=== PATIENT | female | born 1965 | race Caucasian/White ===

== ENCOUNTER 2019-08-17 14:44 | Inpatient (IN) | payer MEDICARE ==
[~2019-08-17] VITALS: Ht 162.6 cm; Wt 90.9 kg
[2019-08-17] MEDS ORDERED: NALT50TA4 PO (15:13)
[2019-08-17] MEDS ORDERED: PROT1TAB2 PO (15:13)
[2019-08-17] MEDS ORDERED: ABIL1TAB13 PO (15:13)
[2019-08-17] MEDS ORDERED: BUPR-368 PO (15:13)
[2019-08-17] MEDS ORDERED: MIRT1TAB17 PO (15:13)
[2019-08-17] MEDS ORDERED: CLON0.5T2 PO (15:13)
[2019-08-17] MEDS ORDERED: TOPA100T12 PO (15:13)
[2019-08-17] MEDS ORDERED: TRIA37.5 PO (15:13)
[2019-08-17] MEDS ORDERED: CYMB60CA3 PO (15:13)
[2019-08-17] MEDS ORDERED: ESTR125TA PO (15:13)
[2019-08-17] MEDS ORDERED: GUAN1TA PO (15:13)
[2019-08-17] MEDS ORDERED: ZIPR40CA11 PO (15:13)
[2019-08-17] MEDS ORDERED: FURO40TA2 PO (15:13)
[2019-08-17] MEDS ORDERED: METF500T13 PO (15:13)
[2019-08-17] MEDS ORDERED: GABA600T4 PO (15:13)
[2019-08-17] MEDS ORDERED: ATOR1TAB19 PO (15:13)
[2019-08-17] MEDS ORDERED: XALA0.007 OU (15:13)
[2019-08-17] MEDS ORDERED: TOPR100T PO (15:13)
[2019-08-17] MEDS ORDERED: GABAPENTIN 300 MG CAP PO ONE (15:15)
[2019-08-17] MEDS ORDERED: MAALOX 30 ML SUSP *UDC PO PRN (17:15)
[2019-08-17] MEDS ORDERED: OLANZapine 5 MG TAB PO PRN (17:15)
[2019-08-17] MEDS ORDERED: ACETAMINOPHEN TAB 650MG DOSE (2X325MG) PO PRN (17:15)
[2019-08-17] MEDS ORDERED: diphenhydrAMINE 25 MG CAP PO PRN (17:15)
[2019-08-17] MEDS ORDERED: IBUPROFEN 400 MG TAB PO PRN (17:15)
[2019-08-17] MEDS ORDERED: MOM 30ML SUSPENSION UDC PO PRN (17:15)
[2019-08-17] MEDS ORDERED: traZODone 50 MG TAB PO PRN (17:15)
[2019-08-17] MEDS ORDERED: ARIP1TAB6 PO (17:15)
[2019-08-17] MEDS ORDERED: POLYOPD OU (17:15)
[2019-08-17] MEDS ORDERED: GLUC4GMTAB PO (17:16)
[2019-08-17] MEDS ORDERED: MULT-40 PO (17:16)
[2019-08-17] MEDS ORDERED: IBUP200C28 PO (17:16)
[2019-08-17] MEDS ORDERED: WELL200T PO (17:20)
[2019-08-17 20:53] VITALS: BP 128/74
[2019-08-18 05:58] VITALS: BP 119/66
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
[2019-08-18] MEDS ORDERED: clonazePAM 0.5 MG TAB PO PRN (10:30)
[2019-08-18] MEDS ORDERED: POLYVINYL ALCOHOL OPHTH SOLN 15 ML(LIQUITEARS) OU PRN (10:30)
[2019-08-18] MEDS: ZIPRASIDONE 20MG CAPSULE (GEODON) PO SCH ×2 (12:03→21:15)
[2019-08-18] MEDS: DULoxetine 30 MG CAP (CYMBALTA) PO SCH ×2 (12:03→21:16)
[2019-08-18] MEDS: MULTIVITAMINS/MINERALS THERAP 1 TAB PO SCH (12:03)
[2019-08-18] MEDS: buPROPion **XL** TABLET 150MG (WELLBUTRIN XL) PO SCH (12:04)
[2019-08-18] MEDS: guanFACINE 1 MG TAB PO SCH ×2 (12:04→21:13)
[2019-08-18] MEDS: IBUPROFEN 400 MG TAB PO PRN ×2 (12:04→21:15)
[2019-08-18] MEDS: ATORVASTATIN 10 MG TAB PO SCH (12:05)
[2019-08-18] MEDS: GABAPENTIN 300 MG CAP PO SCH ×3 (12:05→21:15)
[2019-08-18] MEDS: metFORMIN (GLUCOPHAGE) 500 MG TAB PO SCH (12:05)
[2019-08-18] MEDS: PANTOPRAZOLE 40MG TAB (PROTONIX) PO SCH (12:05)
[2019-08-18] MEDS: FUROSEMIDE 40 MG TAB PO SCH (12:05)
[2019-08-18] MEDS: METOPROLOL SUCC (TopROL XL) 100MG *XL* TAB PO SCH (17:01)
[2019-08-18] MEDS: DYAZIDE 37.5/25 CAP (TRIAM/HCTZ) PO SCH (17:01)
[2019-08-18 18:14] VITALS: BP 116/69
[2019-08-18] MEDS: NALTREXONE 50 MG TAB PO SCH (21:13)
[2019-08-18] MEDS: MIRTAZAPINE 15 MG TAB PO SCH (21:13)
[2019-08-18] MEDS: TOPIRAMATE (TopAMAX) 100 MG TAB PO SCH (21:14)
[2019-08-18] MEDS: LATANOPROST 0.005% OPHTH SOLN 2.5 ML OU SCH (21:14)
[2019-08-19 05:50] VITALS: BP 110/55
--- NOTE | 2019-08-19 06:53 | HPEPDOC ---
General Date of Admission Aug 17, 2019 at 17:01 Date of Service: Aug 18, 2019 Chief Complaint The patient is a 54-year-old female admitted with a reason for visit of Unspecified Depression. Source: Patient History of Present Illness 54 year old female admitted to [facility] for depression with suicidal attempt. Today she compained of bilateral hip pain , dull aching about 3/10 in intensity and worsens when she stands or walks for too long. no radiation. Home Medications Scheduled Aripiprazole (Aripiprazole) 5 Mg Tablet, 5 MG PO QHS, (Reported) Atorvastatin Calcium (Atorvastatin Calcium) 10 Mg Tablet, 10 MG PO DAILY, (Reported) Bupropion HCl (Bupropion Xl) 300 Mg Tab.er.24h, 300 MG PO DAILY for . , (Reported) Bupropion HCl (Wellbutrin Sr) 200 Mg Tab.sr.12h, 200 MG PO ONCE, (Reported) Given at [facility]; per pt and pharmacy records, 300 mg XL is normal dose Conjugated Estrogens (Premarin) 1.25 Mg Tablet, 1.25 MG PO DAILY, (Reported) Duloxetine Hcl (Cymbalta) 60 Mg Capsule.dr, 60 MG PO BID, (Reported) Furosemide (Furosemide) 40 Mg Tablet, 40 MG PO DAILY, (Reported) Gabapentin (Gabapentin) 600 Mg Tablet, 600 MG PO TID, (Reported) Guanfacine HCl (Guanfacine HCl) 1 Mg Tablet, 1 MG PO BID, (Reported) Ibuprofen (Ibuprofen) 200 Mg Capsule, 400 MG PO BID, (Reported) Latanoprost (Xalatan) 0.005% 2.5ML Drops, 1 DROP OU QHS, (Reported) Metformin HCl (Metformin HCl) 500 Mg Tablet, 500 MG PO DAILY, (Reported) Metoprolol Succinate (Toprol Xl) 100 Mg Tab.er.24h, 100 MG PO DAILY, (Reported) Mirtazapine (Mirtazapine) 45 Mg Tab.rapdis, 45 MG PO QHS, (Reported) Multivitamin (Multivitamins) 1 Each Tablet, 1 TAB PO DAILY, (Reported) Naltrexone HCl (Naltrexone HCl) 50 Mg Tablet, 50 MG PO QHS, (Reported) Pantoprazole Sodium (Protonix) 40 Mg Tablet.dr, 40 MG PO DAILY, (Reported) Topiramate (Topamax) 100 Mg Tablet, 100 MG PO QHS, (Reported) Triamterene/Hydrochlorothiazid (Triamterene-Hctz 37.5-25 mg Tb) 1 Each Tablet, 1 TAB PO DAILY, (Reported) Ziprasidone HCl (Ziprasidone HCl) 40 Mg Capsule, 40 MG PO BID, (Reported) Scheduled PRN Clonazepam (Clonazepam) 0.5 Mg Tablet, 0.5 MG PO BID PRN for anxiety, (Reported) Dextrose (Glucose) 4 Gm Tab.chew, 1 CHW PO PRN PRN for low blood sugar, (Reported) Polyvinyl Alcohol (Artificial Tears) 15 Ml Drops, 1 DROP OU TID PRN for DRY EYES, (Reported) Allergies Coded Allergies: sitagliptin (Unverified Allergy, Unknown, Pt is unsure of allergy, 08/17/19) codeine (Verified Adverse Reaction, Mild, Heart racing, palpatations, 08/17/19) Past Medical History Medical History diabetes, hypertension, hyperlipidemia, cataracts, glaucoma, arthritis, depression, history of cutting, migraine Surgical History total hystrectomy, umbilicl hernia with mesh repair Family History sister colon cancer mother alcoholic liver cirrhosis father heart disease Social History * Smoker: quit less than 1 year 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 Dyspnea, Lt Headedness Gastrointestinal: Denies: Nausea, Vomiting, Abdominal Pain, Diarrhea Genitourinary: Denies: Dysuria, Frequency, Incontinence, Retention Hematologic: Denies: Bruising, Bleeding Excessively Musculoskeletal: Reports: Joint Pain Neurological: Denies: Weakness, Numbness, Change in speech, Confusion Physical Examination General Exam: Positive: Alert, No Acute Distress Eye Exam: Positive: PERRLA, Conjunctiva & lids normal, EOMI; Negative: Sclera icteric ENT Exam: Positive: Atraumatic, Mucous membr. moist/pink, Pharynx Normal Neck Exam: Positive: Supple; Negative: JVD, thyromegaly Chest Exam: Positive: Clear to auscultation, Normal air movement Heart Exam: Positive: Rate Normal, Regular Rhythm, Normal S1, Normal S2; Negative: Murmurs, Rubs Abdomen Exam: Positive: Normal bowel sounds, Soft; Negative: Tenderness, Hepatospenomegaly Extremity Exam: Positive: Edema (bilateral trace); Negative: Clubbing, Cyanosis Vital Signs Vital Signs Date Time Temp Pulse Resp B/P (MAP) Pulse Ox O2 Delivery O2 Flow Rate FiO2 08/19/19 05:50 97.6 63 18 110/55 (73) Laboratory Data Labs 24H Laboratory Tests 2 08/19/19 06:01: Bedside Glucose (Misc Panel) 95 Assessment/Plan 54 year old female admitted to [facility] for depression with suicidal attempt. Bilateral hip pain continue tylenol and motrin prn Diabetes with neuropathy controlled continue metformin, gabapentin Hypertension controlled metoprolol lasix, HCTZ, triamterene Hyperlipidemia statin Glaucoma continue eye drops. Migraine on topamax Chronic bipedal edema said had echo before and no abnormality was told about does say she has a murmur. I did not appreciate any murmur today. continue diuretics. Psychiatric issues as per psychiatrist. Plan / VTE VTE Prophylaxis Ordered?: No GÓMEZ NAZARIO MD Aug 19, 2019 06:53
[2019-08-19] MEDS: ZIPRASIDONE 20MG CAPSULE (GEODON) PO SCH ×2 (08:32→20:15)
[2019-08-19] MEDS: METOPROLOL SUCC (TopROL XL) 100MG *XL* TAB PO SCH (08:33)
[2019-08-19] MEDS: buPROPion **XL** TABLET 150MG (WELLBUTRIN XL) PO SCH (08:33)
[2019-08-19] MEDS: metFORMIN (GLUCOPHAGE) 500 MG TAB PO SCH (08:33)
[2019-08-19] MEDS: ATORVASTATIN 10 MG TAB PO SCH (08:33)
[2019-08-19] MEDS: DYAZIDE 37.5/25 CAP (TRIAM/HCTZ) PO SCH (08:33)
[2019-08-19] MEDS: guanFACINE 1 MG TAB PO SCH ×2 (08:33→20:13)
[2019-08-19] MEDS: GABAPENTIN 300 MG CAP PO SCH ×3 (08:33→20:15)
[2019-08-19] MEDS: FUROSEMIDE 40 MG TAB PO SCH (08:33)
[2019-08-19] MEDS: PANTOPRAZOLE 40MG TAB (PROTONIX) PO SCH (08:34)
[2019-08-19] MEDS: DULoxetine 30 MG CAP (CYMBALTA) PO SCH ×2 (08:34→20:16)
[2019-08-19] MEDS: MULTIVITAMINS/MINERALS THERAP 1 TAB PO SCH (08:34)
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
[2019-08-19 16:24] VITALS: BP 104/66
[2019-08-19] MEDS: LATANOPROST 0.005% OPHTH SOLN 2.5 ML OU SCH (20:12)
[2019-08-19] MEDS: MIRTAZAPINE 15 MG TAB PO SCH (20:13)
[2019-08-19] MEDS: RAMELTEON 8 MG TAB (ROZEREM) PO SCH (20:13)
[2019-08-19] MEDS: NALTREXONE 50 MG TAB PO SCH (20:14)
[2019-08-19] MEDS: TOPIRAMATE (TopAMAX) 100 MG TAB PO SCH (20:15)
[2019-08-20 05:48] VITALS: BP 104/55
[2019-08-20] MEDS: ZIPRASIDONE 20MG CAPSULE (GEODON) PO SCH ×2 (08:22→21:45)
[2019-08-20] MEDS: GABAPENTIN 300 MG CAP PO SCH ×3 (08:23→21:45)
[2019-08-20] MEDS: DULoxetine 30 MG CAP (CYMBALTA) PO SCH ×2 (08:23→21:45)
[2019-08-20] MEDS: DYAZIDE 37.5/25 CAP (TRIAM/HCTZ) PO SCH (08:23)
[2019-08-20] MEDS: PANTOPRAZOLE 40MG TAB (PROTONIX) PO SCH (08:23)
[2019-08-20] MEDS: buPROPion **XL** TABLET 150MG (WELLBUTRIN XL) PO SCH (08:23)
[2019-08-20] MEDS: guanFACINE 1 MG TAB PO SCH ×2 (08:23→21:42)
[2019-08-20] MEDS: METOPROLOL SUCC (TopROL XL) 100MG *XL* TAB PO SCH (08:24)
[2019-08-20] MEDS: ATORVASTATIN 10 MG TAB PO SCH (08:24)
[2019-08-20] MEDS: FUROSEMIDE 40 MG TAB PO SCH (08:24)
[2019-08-20] MEDS: metFORMIN (GLUCOPHAGE) 500 MG TAB PO SCH (08:24)
[2019-08-20] MEDS: MULTIVITAMINS/MINERALS THERAP 1 TAB PO SCH (08:24)
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
[2019-08-20 16:00] VITALS: BP 107/60
[2019-08-20] MEDS: LATANOPROST 0.005% OPHTH SOLN 2.5 ML OU SCH (21:42)
[2019-08-20] MEDS: RAMELTEON 8 MG TAB (ROZEREM) PO SCH (21:42)
[2019-08-20] MEDS: MIRTAZAPINE 15 MG TAB PO SCH (21:43)
[2019-08-20] MEDS: NALTREXONE 50 MG TAB PO SCH (21:43)
[2019-08-20] MEDS: TOPIRAMATE (TopAMAX) 100 MG TAB PO SCH (21:45)
[2019-08-21 06:32] VITALS: BP 123/63
[2019-08-21] MEDS: DULoxetine 30 MG CAP (CYMBALTA) PO SCH ×2 (09:02→21:20)
[2019-08-21] MEDS: metFORMIN (GLUCOPHAGE) 500 MG TAB PO SCH (09:03)
[2019-08-21] MEDS: buPROPion **XL** TABLET 150MG (WELLBUTRIN XL) PO SCH (09:03)
[2019-08-21] MEDS: DYAZIDE 37.5/25 CAP (TRIAM/HCTZ) PO SCH (09:03)
[2019-08-21] MEDS: PANTOPRAZOLE 40MG TAB (PROTONIX) PO SCH (09:04)
[2019-08-21] MEDS: FUROSEMIDE 40 MG TAB PO SCH (09:04)
[2019-08-21] MEDS: METOPROLOL SUCC (TopROL XL) 100MG *XL* TAB PO SCH (09:04)
[2019-08-21] MEDS: ATORVASTATIN 10 MG TAB PO SCH (09:05)
[2019-08-21] MEDS: GABAPENTIN 300 MG CAP PO SCH ×3 (09:05→21:20)
[2019-08-21] MEDS: ZIPRASIDONE 20MG CAPSULE (GEODON) PO SCH ×2 (09:05→21:20)
[2019-08-21] MEDS: MULTIVITAMINS/MINERALS THERAP 1 TAB PO SCH (09:05)
[2019-08-21] MEDS: guanFACINE 1 MG TAB PO SCH ×2 (09:05→21:20)
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
[2019-08-21 16:00] VITALS: BP 119/58
[2019-08-21] MEDS: LATANOPROST 0.005% OPHTH SOLN 2.5 ML OU SCH (21:19)
[2019-08-21] MEDS: TOPIRAMATE (TopAMAX) 100 MG TAB PO SCH (21:20)
[2019-08-21] MEDS: MIRTAZAPINE 15 MG TAB PO SCH (21:20)
[2019-08-21] MEDS: RAMELTEON 8 MG TAB (ROZEREM) PO SCH (21:20)
[2019-08-21] MEDS: NALTREXONE 50 MG TAB PO SCH (21:20)
[2019-08-22 06:55] VITALS: BP 108/56
[2019-08-22] MEDS: ZIPRASIDONE 20MG CAPSULE (GEODON) PO SCH (08:24)
[2019-08-22] MEDS: buPROPion **XL** TABLET 150MG (WELLBUTRIN XL) PO SCH (08:25)
[2019-08-22 08:26] VITALS: BP 118/64
[2019-08-22] MEDS: PANTOPRAZOLE 40MG TAB (PROTONIX) PO SCH (08:26)
[2019-08-22] MEDS: ATORVASTATIN 10 MG TAB PO SCH (08:26)
[2019-08-22] MEDS: guanFACINE 1 MG TAB PO SCH (08:26)
[2019-08-22] MEDS: GABAPENTIN 300 MG CAP PO SCH (08:26)
[2019-08-22] MEDS: FUROSEMIDE 40 MG TAB PO SCH (08:26)
[2019-08-22] MEDS: DYAZIDE 37.5/25 CAP (TRIAM/HCTZ) PO SCH (08:26)
[2019-08-22] MEDS: DULoxetine 30 MG CAP (CYMBALTA) PO SCH (08:26)
[2019-08-22] MEDS: MULTIVITAMINS/MINERALS THERAP 1 TAB PO SCH (08:26)
[2019-08-22] MEDS: metFORMIN (GLUCOPHAGE) 500 MG TAB PO SCH (08:26)
[2019-08-22] MEDS: METOPROLOL SUCC (TopROL XL) 100MG *XL* TAB PO SCH (08:27)
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
== END 2019-08-22 12:23 | disposition home or self-care (01) | DRG 882 ==
LOC: M ED 14:44 → M ED INP 17:01 → M PSY 20:06
PROVIDERS: ADMIT Psychiatry & Neurology Addiction Medicine; ATTEND Psychiatry & Neurology Addiction Medicine
DX: F43.25 Adjustment disorder with mixed disturbance of emotions and conduct (principal); F43.12 Post-traumatic stress disorder, chronic; H40.9 Unspecified glaucoma; H26.9 Unspecified cataract; E11.40 Type 2 diabetes mellitus with diabetic neuropathy, unspecified; I10 Essential (primary) hypertension; Z81.1 Family history of alcohol abuse and dependence; Z62.819 Personal history of unspecified abuse in childhood; Z91.419 Personal history of unspecified adult abuse; Z79.84 Long term (current) use of oral hypoglycemic drugs; Z79.899 Other long term (current) drug therapy; Z88.5 Allergy status to narcotic agent; Z88.8 Allergy status to other drugs, medicaments and biological substances; Z91.5 Personal history of self-harm; Z87.891 Personal history of nicotine dependence; R60.0 Localized edema; M25.551 Pain in right hip; M25.552 Pain in left hip